=== PATIENT | male | born 1980 | race Caucasian/White ===

== ENCOUNTER 2017-04-18 11:41 | Emergency (ER) | payer OTHER ==
[~2017-04-18] VITALS: Ht 185.4 cm; Wt 84.1 kg
[2017-04-18 11:52] VITALS: BP 157/92; PULSE 53; RESP 16; O2SAT 97
[2017-04-18] MEDS ORDERED: Ondansetron 8 mg ODT Tablet PO ONE (12:00)
--- NOTE | 2017-04-18 12:02 | ED.REPORT ---
[facility]-Medical Clearance Date of Service Apr 18, 2017 ED Provider: El Stockton PA-C Nelson is a 36-year-old male with a history of alcohol abuse presenting with a chief complaint alcohol withdrawal. Seeking clearance for the crisis center. Patient reports he was recently discharged from the crisis Center, and had been drinking a small amount of beer per day. He reports over the last week this is escalated to approximately a fifth of hard liquor per day for the last week. Patient reports that for the last day he has been drinking a small amount of beer again to keep withdrawal symptoms at bay. Complains of mild agitation, tremulousness, nausea, vomiting. Denies fever, chills, abdominal pain, suicidal ideation, homicidal ideation, hallucination or other complaints. Admits a history of withdrawal seizure 1. Denies delirium tremens. At presentation he does not have a bed arranged at crisis rehabilitation. Nursing Notes Stated Complaint: ALCOHOL WITHDRAWL Chief Complaint: Substance Abuse Nursing Notes Reviewed: Yes Allergies: Coded Allergies: Penicillins (Verified Allergy, Unknown, 08/28/14) Miscellaneous Medications ([None]) General Time Seen by Provider: 11:52 Chief Complaint : Other (alcohol withdrawal) Past Medical History Past Medical History Alcohol and cocaine dependence, now using meth 06/21/2016 Reports: Asthma Past Surgical History ORIF left arm Family History Reviewed, not relevant. Muscular dystrophy. DVT Reports: Diabetes mellitus Reports: Cancer Smoking History Current Every Day Smoker Social History Alcohol Use: In recovery Occupation lives by self, no work or school at present Ambulatory Status Independent Review of Systems General: Denies fever, chills, malaise. HEENT: Denies congestion, headache, sore throat. Respiratory: Denies dyspnea, cough, shortness of breath, wheezing. Cardiovascular: Denies chest pain, palpitations. Gastrointestinal: Admits vomiting, denies diarrhea, abdominal pain Genitourinary: Denies frequency, urgency, dysuria, hematuria. Otherwise as noted in HPI. Physical Exam General: Well appearing, well developed, well nourished, no acute distress. Head: Atraumatic, normocephalic. Eyes: No scleral icterus or injection. No discharge. Vision grossly intact. ENT: Voice clear, hearing grossly intact. Respiratory: Regular rate and rhythm. Breath sounds present, clear to auscultation and equal bilaterally. No respiratory distress. No increased work of breathing, speaks in complete sentences. Cardiovascular: Regular rate and rhythm, without murmur, gallop or rub. No pedal edema. Gastrointestinal: Abdomen flat and non-tender without guarding or rebound. Bowel sounds normoactive. Skin: Warm and dry. Neurological: Grossly nonfocal. Psychological: Alert and oriented. Speech appropriate, linear and logical. Appears mildly anxious. Initial Vital Signs Vital Signs (First) Date Time Temp Pulse Resp B/P Pulse Ox O2 Delivery O2 Flow Rate FiO2 04/18/17 11:52 36.5 53 16 157/92 97 Room Air Elevated blood pressure noted, otherwise normal. Interpretation & Diagnostics Lab Results Interpretation Test 04/18/17 13:48 Hold Urine Received (Received) Re-Eval/Medical Decision Med Decision/Clinical Course 36-year-old male with history alcohol abuse presents with alcohol withdrawal after roughly 1 week binge in which he drank approximately a fifth of hard liquor a day. Reports recent discharge from [facility]. Complains of tremulousness, anxiety, nausea, vomiting. Physical examination reveals normal medical instability. Breathalyzer at 1152 is 0.074, U tox is negative. Patient consulted with JULIETA Herrera who reports that there are no beds available at [facility], but she is looking into availability in [facility]. Unfortunately no break in the surrounding region. [place], but the patient is unable to get a ride that far , and they will not allow him to drive there. Patient feels off will be discharged to home to follow-up with crisis rehabilitation tomorrow. I feel this is reasonable, and that he is objectively sober and capable of making this decision. I believe he is stable and safe to be discharged. Advised follow-up with [facility], provided emergency return precautions. Patient verbalizes understanding of and consent to the plan. Discharge & Departure Impression: Primary Impression: Alcohol withdrawal Complication of substance-induced condition: uncomplicated Qualified Code: F10.230 - Alcohol dependence with withdrawal, uncomplicated Additional Impression: Elevated blood pressure reading Disposition: Home Discharge Condition All VS Reviewed: Yes Condition: Stable Patient Instructions: Alcohol Withdrawal (ED) Additional Instructions: Evaluation for alcohol withdrawal in the emergency department consisted of history and physical examination. You are cleared for treatment at [facility], unfortunately they do not have a bed available today, nor do other facilities in the region. I am sorry about that. I believe you are stable and safe to be discharged to home. You have stated that you are comfortable with this, and will contact [facility] tomorrow to make further arrangements. Follow-up with [facility] tomorrow. Return to the emergency department for any new or worsening symptoms including hallucinations, seizures, increasing tremors. Referrals: [facility] EDSupervising Provider for APC: Daquan Cedeño MD, Seth PA-C Apr 18, 2017 12:02
[2017-04-18 15:12] VITALS: PULSE 71; RESP 18; O2SAT 97
== END 2017-04-18 15:15 | disposition home or self-care (01) ==
LOC: SED 11:41
DX: F10.230 Alcohol dependence with withdrawal, uncomplicated (principal); F17.200 Nicotine dependence, unspecified, uncomplicated; R03.0 Elevated blood-pressure reading, without diagnosis of hypertension